=== PATIENT | male | born 1965 | race Caucasian/White ===

== ENCOUNTER 2020-12-19 12:42 | Day surgery (SDC) | payer MEDICARE, OTHER ==
[~2020-12-19] VITALS: Ht 180.3 cm; Wt 83.0 kg
[~2020-12-19 12:42] MED LIST: AMITRIPTYLINE100 M1 PO; FAMO40 PO; Imitrex100 MG PO; LAMO100 PO; METO10 PO; PANT40 PO; Pristiq100 MG PO; SUCR1 PO; TIZA4 PO; TUMS500 MG PO; VALIUM PO
== END 2020-12-19 14:28 | disposition home or self-care (01) ==
LOC: ORSCSDS 12:42
PROVIDERS: Internal Medicine Gastroenterology
PROC: 0DB68ZX Excision of Stomach, Via Natural or Artificial Opening Endoscopic, Diagnostic (ICD-10-PCS; principal; 2020-12-19 13:45)
PROC: 0DB98ZX Excision of Duodenum, Via Natural or Artificial Opening Endoscopic, Diagnostic (ICD-10-PCS; principal; 2020-12-19 13:45)
DX: K21.9 Gastro-esophageal reflux disease without esophagitis (principal); R14.0 Abdominal distension (gaseous); K20.80 Other esophagitis without bleeding; K44.9 Diaphragmatic hernia without obstruction or gangrene; D64.9 Anemia, unspecified; F32.9 Major depressive disorder, single episode, unspecified; R13.10 Dysphagia, unspecified; I10 Essential (primary) hypertension; Z87.891 Personal history of nicotine dependence; Z79.899 Other long term (current) drug therapy
CPT/HCPCS: 88305; 88342; J2704; J7120